=== PATIENT | male | born 1950 | race Caucasian/White ===

== ENCOUNTER 2021-06-29 16:30 | Inpatient (IN) | payer OTHER ==
[~2021-06-29] VITALS: Ht 177.8 cm; Wt 150.0 kg
[2021-06-29 16:25] VITALS: BP 147/68
[2021-06-29] MEDS ORDERED: BETAMETHASONE D50 G2 TOP (16:59)
[2021-06-29] MEDS ORDERED: AMARYL4 MG PO (16:59)
[2021-06-29] MEDS ORDERED: TOPROL XL50 MG PO (17:00)
[2021-06-29] MEDS ORDERED: LIPITOR80 MG PO (17:01)
[2021-06-29] MEDS ORDERED: NORCO5 PO (17:02)
[2021-06-29] MEDS ORDERED: ACCUPRIL40 MG PO (17:02)
[2021-06-29] MEDS ORDERED: ASPIR-TRIN325 MG PO (17:03)
[2021-06-29] MEDS ORDERED: LANTUS SUBQ (17:04)
[2021-06-29] MEDS ORDERED: HUMALOG100 UNIT/1 (17:04)
[2021-06-29 19:08] LABS: INR 1.05; PROTIME 11.4 Seconds (10.5-12.1)
--- NOTE | 2021-06-29 19:09 | NUR ---
PT ADMITED FROM [facility]. ADMISSION HX AND ASSESSMENT COMPLETED. DR FLANNERY NOTIFIED. NEW ORDERS NOTED.
[2021-06-29 19:39] VITALS: BP 147/84
[2021-06-29 20:00] VITALS: BP 152/66
[2021-06-29 23:56] VITALS: BP 152/66
[2021-06-30] VITALS (7 sets, daily range): BP systolic 114–156; BP diastolic 53–68
[2021-06-30 03:35] LABS: ABSOLUTE NEUTROPHILS 11.3 thou/uL (1.4-8.2); BASOPHILS 0.6 % (0.0-2.0); EOSINOPHILS 0.2 % (0.0-3.0); HEMATOCRIT 39.8 % (42.0-52.0); HEMOGLOBIN 13.1 gm/dL (14.0-18.0); LYMPHOCYTES 10.9 % (24.0-44.0); MCH 29.3 pg (26.0-34.0); MCV 88.7 fL (80.0-100.0); PLATELET COUNT 222 thou/uL (150-400); POLYS 81.3 % (36.0-66.0); RBC 4.49 mil/uL (4.50-6.00); RDW 14.3 % (10.5-14.5); WBC 13.9 thou/uL (4.0-11.0)
[2021-06-30 04:03] LABS: ALBUMIN 3.2 g/dL (3.4-5.0); CALCIUM 8.5 mg/dL (8.5-10.1); CREATININE 1.3 mg/dL (0.7-1.3); MAGNESIUM 1.9 mg/dL (1.8-2.4); POTASSIUM 4.2 mmol/L (3.5-5.1); TOTAL BILIRUBIN 0.8 mg/dL (0.2-1.0); TOTAL PROTEIN 7.2 g/dL (6.4-8.2)
--- NOTE | 2021-06-30 05:05 | NUR ---
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
--- NOTE | 2021-07-01 02:51 | NUR ---
PT A&OX4, AFIB ON TELE, HR IN THE 90S, CARDIZEM INFUSING AT 10ML/HR, PT TOLERATED PO MEDS, PT HR DOWN TO 60S AFTER SCHEDULED ATENOLON, CARDIZEM TITRATED OFF, PT HR IS BEE, STABLE BETWEEN 60S-80S, DENIES NAUSEA, GIVEN HYDROCODONEX1 FOR ABDOMINAL PAIN WITH RELIEF, HEPARIN INFUSING PER PROTOCOL, NO DISTRESS NOTED, WILL CONTINUE TO MONITOR PER POC
[2021-07-01 04:20] VITALS: BP 143/45
[2021-07-01 06:26] LABS: HEMATOCRIT 35.1 % (42.0-52.0); MCH 30.3 pg (26.0-34.0); MCV 89.1 fL (80.0-100.0); RBC 3.95 mil/uL (4.50-6.00); RDW 14.4 % (10.5-14.5); WBC 11.7 thou/uL (4.0-11.0)
[2021-07-01 06:45] LABS: CALCIUM 8.1 mg/dL (8.5-10.1); MAGNESIUM 1.8 mg/dL (1.8-2.4)
[2021-07-01 08:00] VITALS: BP 140/68
--- NOTE | 2021-07-01 08:33 | HC ---
[facility] [place] [address] CONSULTATION Name: DEANNE SOMERS Room #: [facility]- ADM IN M.R.#: [id number] Admission: 06/29/21 Attend Phys: Richard Pandya MD Discharge: Date of : 52 Report #: [id number] THIS REPORT FOR: cc: Da Alaniz MD, Kirk D. MD Park, Jin S. MD ~ DATE OF SERVICE: 06/30/2021 CARDIOLOGY CONSULTATION INDICATIONS: Atrial fibrillation. HISTORY OF PRESENT ILLNESS: This is a 70-year-old gentleman with a history of CABG, atrial fibrillation, diabetes mellitus, hypertension, hypercholesterolemia, transferred from [facility] for apparent PE and colitis. Initially presented with nausea and vomiting. Workup revealed PE and colitis. He also reports some chest discomfort, not related to exertion. This may be related to his PE. He also notes increasing shortness of breath. There is no history of fever, PND, or orthopnea. PAST MEDICAL HISTORY: Five-vessel CABG in 2001. No history of VT or stents. History of AFib, previously recommended Xarelto, but it was too expensive and took aspirin twice a day. Diabetes mellitus, hypertension, and hypercholesterolemia. ALLERGIES: None. MEDICATIONS: Include insulin, glimepiride, metoprolol, Lipitor 80 mg, quinapril, aspirin. SOCIAL HISTORY: Denies tobacco use. FAMILY HISTORY: Negative for premature CAD. REVIEW OF SYSTEMS: A full 10-point review of systems performed. Only the pertinent positives and negatives described in the HPI. PHYSICAL EXAMINATION: VITAL SIGNS: Blood pressure is 136/50, heart rate is 120 beats per minute. GENERAL APPEARANCE: This is an overweight male in no acute distress. HEENT: Normocephalic, atraumatic. Oral mucosa moist. NECK: Supple. LUNGS: CTA. CARDIAC: Tachycardic. S1, S2 positive. ABDOMEN: Soft, nontender. EXTREMITIES: No cyanosis, trace edema. [facility] [address] [place] [address] CONSULTATION Name: DEANNE SOMERS Room #: [address] [place] [address] [facility].#: [id number] Admission: 06/29/21 Attend Phys: Richard Pandya MD Discharge: Date of : 52 Report #: [id number] LABORATORY DATA: White count 13.9, hemoglobin 13.1. Creatinine is 1.3. Troponin is 16. ASSESSMENT AND PLAN: 1. Atrial fibrillation with rapid rate. On IV Cardizem. We will switch to beta peggy. We will eventually need anticoagulation therapy. 2. Coronary artery bypass grafting, complains of chest pain. May be related to pulmonary embolism. Will eventually need an ischemic evaluation. Initial troponin level is negative. 3. Diabetes mellitus, continue on insulin as per PCP. 4. Hypertension, continue on TERRELL inhibitor and beta peggy therapy. 5. Hypercholesterolemia, continue statin therapy. <ELECTRONICALLY SIGNED> By: Nick Armas MD 07/01/21 0833 1025 1229 MD wesley Stevens
[2021-07-01 11:14] LABS: CHOLESTEROL 100 mg/dL (<200); HDL CHOLESTEROL 53 mg/dL (>40); LDL CHOLESTEROL 28 mg/dL (<100); TC:HDL 1.9 Ratio (Not establshd); TRIGLYCERIDE 95 mg/dL (<150); VLDL 19 mg/dL (<40)
--- NOTE | 2021-07-01 11:30 | 2DMMODE ---
[facility] [place] [address] [place] [address] 2 D/M-MODE ECHOCARDIOGRAM Name: DEANNE SOMERS Room #: 211-P ADM IN M.R.#: [id number] Admission: 06/29/21 Attend Phys: Richard Pandya MD Discharge: Date of : 52 Report #: [id number] THIS REPORT FOR: cc: Da Alaniz MD, Kirk D. MD Park, Jin S. MD ~ APPROVED REPORT Study performed: 07/01/2021 09:00:49 EXAM: Comprehensive 2D, Doppler, and color-flow Echocardiogram Patient Location: In-Patient Room #: 211 Status: routine BSA: 2.53 HR: 58 bpm BP: 143/4 mmHg Rhythm: Atrial Fibrillation Other Information Study Quality: Adequate Indications Pulmonary Embolism Atrial Fibrillation 2D Dimensions IVSd: 10.30 (7-11mm) LVOT Diam: 20.65 (18-24mm) LVDd: 53.06 mm PWd: 9.04 (7-11mm) Ascending Ao: 33.27 (22-36mm) LVDs: 40.80 (25-40mm) Left Atrium: 44.30 (27-40mm) Aortic Root: 30.58 mm Volumes Left Atrial Volume (Systole) Single Plane 4CH: 43.94 mL Single Plane 2CH: 33.77 mL Biplane LA Volume: 48.00 mL LA ESV Index: 19.00 mL/m2 Aortic Valve AoV Peak Rashaun.: 1.11 m/s AO Peak Gr.: 4.94 mmHg LVOT Max P.47 mmHg LVOT Max V: 0.61 m/s TREVER Vmax: 1.83 cm2 [facility] [email or web address] [address] 2 D/M-MODE ECHOCARDIOGRAM Name: DEANNE SOMERS Room #: 211-P ADM IN [facility].#: [id number] Admission: 06/29/21 Attend Phys: Sarah Darling Discharge: Date of : 52 Report #: [id number] Pulmonary Valve PV Peak Rashaun.: 1.08 m/s PV Peak Gr.: 4.63 mmHg Tricuspid Valve TR Peak Rashaun.: 3.00 m/s RAP Estimate: 7.00 mmHg TR Peak Gr.: 36.00 mmHg RVSP: 43.00 mmHg Left Ventricle The left ventricle is normal size. There is normal LV segmental wall motion. There is normal left ventricular wall thickness. Left ventricular systolic function is borderline. LVEF is 50%. This study is not technically sufficient to allow evaluation of the LV diastolic function due to atrial fibrillation. Right Ventricle The right ventricle is normal size. The right ventricular systolic function is normal. Atria The left atrium size is normal. The right atrium size is normal. Aortic Valve The aortic valve is normal in structure. No aortic regurgitation is present. There is no aortic valvular stenosis. Mitral Valve The mitral valve is normal in structure. Mild to moderate mitral regurgitation. No evidence of mitral valve stenosis. Tricuspid Valve The tricuspid valve is normal in structure. Mild to moderate tricuspid regurgitation. PAP 42 mmHg Pulmonic Valve The pulmonary valve is normal in structure. Mild pulmonic regurgitation. Great Vessels The aortic root is normal in size. IVC is dilated and collapses <50% with inspiration. Pericardium There is no pericardial effusion. There is no pleural effusion. [facility] [place] [place] [address] 2 D/M-MODE ECHOCARDIOGRAM Name: NATALIAAUSTINHERMITAGE Room #: [address] [place] [address] IN M.R.#: [id number] Admission: 06/29/21 Attend Phys: Sarah Darling Discharge: Date of : 52 Report #: [id number] <Conclusion> The left ventricle is normal size. There is normal left ventricular wall thickness. Left ventricular systolic function is borderline. LVEF is 50%. The right ventricle is normal size. The left atrium size is normal. The aortic valve is normal in structure. Mild to moderate mitral regurgitation. Mild to moderate tricuspid regurgitation. <ELECTRONICALLY SIGNED> By: Nick Armas MD 07/01/21 1129 1129 1129 Nick Armas MD /INF
[2021-07-01 16:00] VITALS: BP 134/74
[2021-07-01 19:04] VITALS: BP 140/85
--- NOTE | 2021-07-02 03:31 | NUR ---
Assumed pt care at 1900. Pt is alert and oriented. No sign of distress noted in pt. Patient is verbalizing nausea and pain. Pain medication and antiemetic administered. Assessment completed and documented. Scheduled meds administered to patient. No acute events through the night. Continue to monitor, no further needs at this time
[2021-07-02 03:40] VITALS: BP 137/64
[2021-07-02 05:33] LABS: HEMATOCRIT 35.4 % (42.0-52.0); HEMOGLOBIN 11.7 gm/dL (14.0-18.0); MCH 29.4 pg (26.0-34.0); MCHC 33.1 g/dL (28.0-37.0); MCV 88.7 fL (80.0-100.0); RBC 3.99 mil/uL (4.50-6.00); WBC 9.5 thou/uL (4.0-11.0)
[2021-07-02 07:25] VITALS: BP 153/80
[2021-07-02 08:25] VITALS: BP 154/77
[2021-07-02 12:38] VITALS: BP 126/55
[2021-07-02 16:00] VITALS: BP 111/85
--- NOTE | 2021-07-02 18:05 | NUR ---
PT FOUND ON THE FLOOR THIS AM IMMIEDIATELY AFTER SHIFT CHANGE, PT REPORTED THAT HIS LEG GAVE UP ON HIM, DENIED HITTING HEAD, VS STABLE, SPOUSE AND PHYSICIAN NOTIFIED, NO FURTHER ORDERS RECEIVED. FALL PRECAUTIONS ENFORCED. PT REMINDED NOT TO SELF TRANSFER WITHOUT CALLING FOR HELP. UP IN THE CHAIR AT THIS TIME NO FURTHER CONCERNS PROGRESSING WELL TOWARDS DISCHARGE GOAL.
[2021-07-02 20:00] VITALS: BP 131/81
[2021-07-03 04:34] VITALS: BP 119/72
[2021-07-03 05:15] LABS: APTT 57.8 Seconds (24.5-32.8); INR 1.11
--- NOTE | 2021-07-03 07:08 | NUR ---
ASSUMED PATIENT CARE AT 1845. LS- CTA, BOWEL SOUNDS ACTIVE, PPP ALL EXTREMITIES, VSS : BP-119/72, T- 98.1, P- 79, R- 12, SPO2- 94% RA. CHANGED DRESSING TO RAC IV SITE R/T OOZING DUE TO HEPARIN INFUSING. FLUIDS & ABT INFUSING IN RW. NORCO GIVEN FOR C/O ABDOMINAL PAIN 04/27. EFFECTIVE 01/26. DRESSING CDI TO RFA, R/T FALL. LIQUID STOOL W/ CLEAR URINE VOIDED X 2. NO VISIBLE BLOOD OBSERVED. WAS NOT ABLE TO REST MUCH R/T IV MEDS AND AM LABS. PTT- 57.8, NO CHANGE IN HEPARIN INFUSION. REPORT GIVEN TO ONCOMING RN.
[2021-07-03 09:00] VITALS: BP 133/63
[2021-07-03] MEDS ORDERED: ATENOLOL 50MG T50 MG PO (10:54)
[2021-07-03] MEDS ORDERED: XARELTO15 MG PO (10:54)
[2021-07-03] MEDS ORDERED: BAYER CHEWABLE81 MG PO (10:54)
[2021-07-03 11:00] VITALS: BP 115/66
--- NOTE | 2021-07-03 14:24 | NUR ---
Met with patient who admits with AFIB. Patient resides at home with . all needs needs on one level. 3 steps to enter home. patient likely dc tomorrow. Discussed HH care and outpatient therapy. Patient prefers outpatient therapy. updated phys. Patient familiar with outpatient and also recommended by therapy. Casemgt following.
[2021-07-03 15:10] VITALS: BP 132/57
--- NOTE | 2021-07-03 18:14 | NUR ---
OVERALL PT HAD A GOOD SHIFT. ASSISTED PT UP FROM BED TO TOILET THIS AM. LOOSE BOWEL MOVEMENT. ASSISTED PT TO CHAIR FROM TOILET. PT USED THE TOILET 2 MORE TIMES WITH ASSISTANCE THROUGHOUT SHIFT. PT STATED HIS PAIN WAS UNDERCONTROL AND DID NOT REQUEST ANY PAIN MEDICATION. PT HEPARIN WAS DC'D AND PALCED ON XERALTO.
[2021-07-03 19:20] VITALS: BP 148/89
[2021-07-04 03:06] LABS: INR 1.56; PROTIME 16.6 Seconds (10.5-12.1)
[2021-07-04 03:59] VITALS: BP 148/93
--- NOTE | 2021-07-04 05:16 | NUR ---
PT SITTING IN CHAIR AND THEN ASSISTED INTO BED, POOR INTAKE ON LIQUID DIET. VSS, PRN PAIN MED GIVEN FOR C/O PAIN, REPOSITIONED NEEDED, NS INFUSING IN R FA, WILL CON'T TO MONITOR PER PPOC
[2021-07-04 07:32] VITALS: BP 146/85
[2021-07-04] MEDS ORDERED: AMOX TR-K CLV1 EAC4 PO (09:34)
[2021-07-04 10:33] VITALS: BP 145/85
[2021-07-04 12:49] VITALS: BP 151/75
[2021-07-04 12:59] VITALS: BP 151/75
--- NOTE | 2021-07-04 15:47 | NUR ---
PATIENT ALERT AND ORIENTATED AT THIS TIME. WENT OVER DISCHARGE INSTRUCTIONS WITH PATIENT AND HIS WAS PRESENT. ASKED APPROPRIATE QUESTIONS REGARDING NEW MEDICATIONS; EDUCATION PROVIDED ON NEW MEDICATIONS. EDUCATION PROVIDED ON FOLLOW UP APPOINTMENT. PATIENT DENIES CHEST PAIN, NAUSEA, VOMITING AND SHORTNESS OF AIR AT THIS TIME. PATIENT DISCHARGED TO HOME VIA PERSONAL VEHICLE ACCOMPANIED BY NURSING STAFF WITH SPOUSE PRESENT. PATIENT DENIES ANY ADDITIONAL QUESTIONS.
== END 2021-07-04 15:10 | disposition home or self-care (01) | DRG 871 ==
LOC: 2N 16:30
PROVIDERS: Internal Medicine; ADMIT Hospitalist; ATTEND Hospitalist
DX: A41.9 Sepsis, unspecified organism (principal); I26.99 Other pulmonary embolism without acute cor pulmonale; J96.01 Acute respiratory failure with hypoxia; I48.20 Chronic atrial fibrillation, unspecified; B02.29 Other postherpetic nervous system involvement; C64.2 Malignant neoplasm of left kidney, except renal pelvis; K52.9 Noninfective gastroenteritis and colitis, unspecified; E78.00 Pure hypercholesterolemia, unspecified; I10 Essential (primary) hypertension; E78.5 Hyperlipidemia, unspecified; I25.10 Atherosclerotic heart disease of native coronary artery without angina pectoris; E11.43 Type 2 diabetes mellitus with diabetic autonomic (poly)neuropathy; I25.2 Old myocardial infarction; Z95.1 Presence of aortocoronary bypass graft; Z79.82 Long term (current) use of aspirin; Z79.899 Other long term (current) drug therapy
CPT/HCPCS: 10081

== ENCOUNTER 2021-07-29 11:07 | Inpatient (IN) | payer OTHER ==
[~2021-07-29] VITALS: Ht 177.8 cm; Wt 117.9 kg
[~2021-07-29 11:07] MED LIST: ACCUPRIL40 MG PO; AMARYL4 MG PO; AMOX TR-K CLV1 EAC4 PO; ASPIR-TRIN325 MG PO; ATENOLOL 50MG T50 MG PO; BAYER CHEWABLE81 MG PO; BETAMETHASONE D50 G2 TOP; HUMALOG100 UNIT/1; LANTUS SUBQ; LIPITOR80 MG PO; NORCO5 PO; TOPROL XL50 MG PO; XARELTO15 MG PO
[2021-07-29 11:13] VITALS: BP 94/61
--- NOTE | 2021-07-29 12:11 | NUR ---
PT UNABLE TO URINATE AT THIS TIME. WILL CONTINUE TO MONITOR
[2021-07-29 12:38] LABS: ABSOLUTE NEUTROPHILS 11.1 thou/uL (1.4-8.2); BASOPHILS 0.5 % (0.0-2.0); EOSINOPHILS 0.8 % (0.0-3.0); HEMATOCRIT 39.4 % (42.0-52.0); HEMOGLOBIN 13.2 gm/dL (14.0-18.0); LYMPHOCYTES 12.9 % (24.0-44.0); MCH 29.5 pg (26.0-34.0); MCHC 33.6 g/dL (28.0-37.0); MCV 87.8 fL (80.0-100.0); MONOCYTES 7.8 % (1.0-8.0); PLATELET COUNT 281 thou/uL (150-400); RBC 4.49 mil/uL (4.50-6.00); RDW 14.8 % (10.5-14.5); WBC 14.3 thou/uL (4.0-11.0)
[2021-07-29 12:45] LABS: CALCIUM 8.8 mg/dL (8.5-10.1); CREATININE 1.4 mg/dL (0.7-1.3); POTASSIUM 3.6 mmol/L (3.5-5.1)
[2021-07-29 12:52] LABS: ALBUMIN 3.4 g/dL (3.4-5.0); TOTAL BILIRUBIN 0.8 mg/dL (0.2-1.0); TOTAL PROTEIN 7.2 g/dL (6.4-8.2)
--- NOTE | 2021-07-29 12:55 | NUR ---
VERBAL ORDERS FROM LAWANDA KAUR TO INFUSE 250 ML OF NS.
[2021-07-29 15:20] LABS: URINE BILIRUBIN NEGATIVE (Negative); URINE BLOOD TRACE (Negative); URINE CLARITY CLEAR; URINE COLOR YELLOW; URINE GLUCOSE-RANDOM* NEGATIVE (Negative); URINE KETONES NEGATIVE (Negative); URINE LEUKOCYTES-REFLEX NEGATIVE (Negative); URINE NITRITE-REFLEX NEGATIVE (Negative); URINE PROTEIN (DIPSTICK) NEGATIVE (Negative); URINE UROBILINOGEN 0.2 E.U./dl (0.2-1.0)
[2021-07-30 00:52] LABS: HEMATOCRIT 38.6 % (42.0-52.0); HEMOGLOBIN 12.8 gm/dL (14.0-18.0); MCH 29.2 pg (26.0-34.0); MCHC 33.1 g/dL (28.0-37.0); MCV 88.2 fL (80.0-100.0); RBC 4.37 mil/uL (4.50-6.00); RDW 15.1 % (10.5-14.5); WBC 12.3 thou/uL (4.0-11.0)
[2021-07-30 00:56] LABS: CALCIUM 8.6 mg/dL (8.5-10.1); CREATININE 1.2 mg/dL (0.7-1.3); POTASSIUM 4.1 mmol/L (3.5-5.1)
[2021-07-30 18:29] VITALS: BP 133/90
[2021-07-30 18:50] VITALS: BP 113/74
[2021-07-30 20:17] VITALS: BP 153/83
--- NOTE | 2021-07-31 02:04 | NUR ---
PT ARRIVED FORM ER 1999. A&OX4 ADMISSION DONE AND PT ORIENTED TO THE UNIT. GOLYTELY BOWEL PREP STARTED DOWN IN TH ER. PT DRANK 300 CC ON THE FLLOR. NPO AT MIDINGHT. UP AD CLAUDIO TO THE BATHROOM. IV INTACT AND ABX INFUSING WITH FLUIDS. ON RA. BSG CHECKED AND INSLUIN GIVEN. WILL CONT WITH POC TILL EOS.
[2021-07-31 04:27] VITALS: BP 129/78
[2021-07-31 09:06] VITALS: BP 138/83
[2021-07-31 10:02] LABS: ABSOLUTE NEUTROPHILS 4.9 thou/uL (1.4-8.2); EOSINOPHILS 2.2 % (0.0-3.0); HEMOGLOBIN 12.6 gm/dL (14.0-18.0); LYMPHOCYTES 16.3 % (24.0-44.0); MCH 29.4 pg (26.0-34.0); MCHC 33.2 g/dL (28.0-37.0); MCV 88.6 fL (80.0-100.0); PLATELET COUNT 200 thou/uL (150-400); POLYS 69.5 % (36.0-66.0); RBC 4.29 mil/uL (4.50-6.00); RDW 14.9 % (10.5-14.5); WBC 7.1 thou/uL (4.0-11.0)
--- NOTE | 2021-07-31 10:18 | NUR ---
ORDERS FOR EVAL AND TREAT. Pt IS UP AD CLAUDIO IN ROOM. SPOKE WITH Pt WHO STATES MAIN COMPLAINT IS ABDOMINAL PAIN BUT NOT HAVING ANY ISSUES WITH MOBILITY, BALANCE OR STRENGTH. STATES HE DID FINE WITH O.T. EVAL AND DOES NOT THINK HE NEEDS A FORMAL EVAL FROM P.T. Pt DECLINING P.T. EVAL BUT APPEARS SAFE FOR HOME WHEN MEDICALLY CLEAR
[2021-07-31 10:23] LABS: CALCIUM 8.7 mg/dL (8.5-10.1); CREATININE 1.1 mg/dL (0.7-1.3); POTASSIUM 3.8 mmol/L (3.5-5.1)
--- NOTE | 2021-07-31 12:12 | NUR ---
ASSUMED PT CARE THIS AM. PT IS ALERT & ORIENTED X4. PT HAS IV SITE ON RFA RUNNING NS @100ML/HR. PT IS UP AD CLAUDIO AND WAS WORKING WITH PHYSICAL THERAPY THIS AM,. PT IS ACCUCHECK ACHS. PT IS ON ROOM AIR. PT RATED PAIN 5/10 ON ABDOMEN. PT HAS BEEN NPO SINCE MIDNIGHT. PT WILL HAVE PROCEDURE THIS AFTERNOON AND INFORMED PT. PT REFUSED BP MEDICATION THIS AM. PT ON THE CHAIR WATCHING TV, CALL LIGHT WITHIN REACH. FOLLOW POC.
--- NOTE | 2021-07-31 14:58 | NUR ---
Chart reviewed and case discussed with the care team. CM role introduced to the pt and at bedside. Pt is indep and active prior to admission. He lives with his and they do not anticipate any dc needs. The pt is having a colonoscopy today due to +occult stool. Will follow along should dc needs arise. His pcp is Dr. Da Alaniz.
[2021-07-31 19:52] VITALS: BP 143/92
--- NOTE | 2021-08-01 00:57 | NUR ---
PT ALERT AND ORIENTED. GETS UP STEADILY TO THE BATHROOM. DENIES ANY PAIN/NAUSEA/VOMITING. AFEBRILE. CONTINUES ON IVF AND IV ABTS.NPO AFTER MIDNIGHT FOR EGD IN THE AM-PT AWARE OF PLAN. NO FURTHER CONCERNS AT THIS TIME.
[2021-08-01 03:55] VITALS: BP 133/80
[2021-08-01 05:41] LABS: HEMATOCRIT 35.6 % (42.0-52.0); HEMOGLOBIN 12.3 gm/dL (14.0-18.0); MCH 30.1 pg (26.0-34.0); MCHC 34.4 g/dL (28.0-37.0); MCV 87.6 fL (80.0-100.0); RBC 4.07 mil/uL (4.50-6.00); RDW 14.8 % (10.5-14.5); WBC 6.7 thou/uL (4.0-11.0)
[2021-08-01 06:38] LABS: CALCIUM 8.3 mg/dL (8.5-10.1); CREATININE 0.9 mg/dL (0.7-1.3); POTASSIUM 3.7 mmol/L (3.5-5.1)
[2021-08-01 07:15] VITALS: BP 148/102
--- NOTE | 2021-08-01 10:16 | NUR ---
ASSUMED PT CARE THIS AM. PT IS ALERT & ORIENTED X4. PT HAS IV SITE ON RFA RUNNING NS @100ML/HR. PT IS UP AD CLAUDIO. PT IS ACCUCHECK ACHS. PT IS ON ROOM AIR. PT WILL HAVE EGD TODAY. PT RATED PAIN 4/10 ON THE ABDOMEN. PT HAS BEEN NPO SINCE MIDNIGHT. PT IS CURRENTLY SITTING ON THE CHAIR WATCHING TV. AWAITING FOR EGD. FOLLOW POC.
[2021-08-01 14:01] VITALS: BP 146/91
[2021-08-01 20:10] VITALS: BP 122/76
--- NOTE | 2021-08-02 01:29 | NUR ---
PT DENIED PAIN SO FAR.PT CONT ON CIPRO AND FLAGYL ORDERED.PT UP ADLIB IN HIS ROOM.PT ABLE TO MAKE HIS NEEDS KNOWN.PT PROGRESSING SLOWLY TOWARDS DC GOALS.CALL LIGHT WITHIN REACH.
[2021-08-02 05:23] LABS: HEMATOCRIT 35.2 % (42.0-52.0); HEMOGLOBIN 12.2 gm/dL (14.0-18.0); MCH 30.4 pg (26.0-34.0); MCHC 34.6 g/dL (28.0-37.0); WBC 9.1 thou/uL (4.0-11.0)
[2021-08-02 05:32] LABS: CALCIUM 8.1 mg/dL (8.5-10.1); CREATININE 0.8 mg/dL (0.7-1.3); POTASSIUM 3.3 mmol/L (3.5-5.1)
[2021-08-02 07:36] VITALS: BP 140/86
[2021-08-02] MEDS ORDERED: CIPRO500 M1 PO (14:37)
[2021-08-02] MEDS ORDERED: XARELTO20 MG PO (14:40)
[2021-08-02] MEDS ORDERED: PROTONIX40 M2 PO (14:42)
[2021-08-02] MEDS ORDERED: CARAFATE 11 GM/10 M1 PO (14:42)
--- NOTE | 2021-08-02 15:15 | NUR ---
CARE TEAM INDICATED THAT PT IS MEDICALLY STABLE TO DC HOME THIS DAY. PT TO DC HOME TO SELF CARE. NO OTHER CM INTERVENTION INDICATED. CASE CLOSED.
[2021-08-02 15:31] VITALS: BP 140/86
--- NOTE | 2021-08-02 16:22 | NUR ---
PT ASSESSED AT START OF SHIFT. UP IN THE CHAIR ALL DAY. EATING AND DRINKING W/O NAUSEA OR PAIN. GI NURSE IN THIS AM AND PT TO F/U W/ DR. ENNIS IF DISCHARGED TODAY. DC'D AT 1545 W/ ALL BELONGINGS.
--- NOTE | 2021-08-02 16:25 | NUR ---
PT ASSESSED AT START OF SHIFT. PROGRESSING TOWARD GOALS. EATING AND DRINKING W/O NAUSEA OR PAIN. DICHARGED AT 1545 W/ ALL BELONGINGS. WILL F/U W/ DR. ENNIS IN 2 WEEKS.
--- NOTE | 2021-08-02 17:34 | P ---
[facility] [place] [address] PROCEDURE REPORT Name: DEANNE SOMERS Room #: 443-[facility] IN M.R.#: [id number] Admission: 07/29/21 Attend Phys: Da Al MD Discharge: 08/02/21 Date of : 51 Report #: [id number] THIS REPORT FOR: cc: Da Alaniz MD, Kirk D. MD McElhinney, Christian C. MD ~ cc: Da Al MD, Da Alaniz MD DATE OF SERVICE: 08/01/2021 PROCEDURE PERFORMED: Upper endoscopy with biopsies. HISTORY OF PRESENT ILLNESS: The patient is a 70-year-old male with history of abdominal pain, weight loss of approximately 50 pounds, recurrent nausea and vomiting. CT scan of the abdomen and pelvis on 07/29/2021 shows numerous diverticula throughout the descending and sigmoid colon. Smooth muscle hypertrophy is present in the sigmoid colon, mild inflammation in the mid portion of the sigmoid. Inflammation cannot be excluded. The patient has been on IV antibiotics. He continues to have abdominal pain. He does have a new left renal mass, which has not been resected, but is known from recent CT scan as well. I performed a colonoscopy on the patient yesterday, diverticulosis without evidence of diverticulitis was noted. Because of his nausea, vomiting, weight loss, no previous history of upper endoscopy, plan is for upper endoscopy today. DESCRIPTION OF PROCEDURE: The risks and benefits of the procedure were explained to the patient, those risks including but not limited to bleeding, perforation and the risk of sedation. He understood these risks and gave informed consent. Sedation was given using propofol per Anesthesia. Next, using a standard Olympus upper endoscope, the scope was placed in the patient's mouth and advanced under direct vision through the esophagus, stomach and into the second portion of the duodenum. The larynx was normal in appearance. The upper and mid esophagus was normal. In the distal esophagus, grade C erosive esophagitis was noted with a possible short segment Owen's. Biopsies were obtained. No evidence of bleeding in the stomach. The gastric fundus and body were normal. There was gastritis with several erosions noted in the gastric antrum. Biopsies were obtained to rule out H. pylori. The pylorus was normal and patent. In the duodenal bulb, first and second portion, multiple small clean white based ulcers were noted. There was no evidence of bleeding. Biopsies were obtained. The scope was then withdrawn and the procedure terminated. The patient tolerated the procedure well. IMPRESSION: 1. Grade C erosive esophagitis. 2. 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 3. Gastritis with erosions. [address] [address] PROCEDURE REPORT Name: LIZBETDEANNE Room #: 443-P [facility] IN M.R.#: [id number] Admission: 07/29/21 Attend Phys: Da Al MD Discharge: 08/02/21 Date of : 51 Report #: [id number] 4. Multiple small clean white based ulcers throughout the duodenum. RECOMMENDATIONS: 1. Await biopsy results. 2. Recommend starting b.i.d. PPI therapy and Carafate for the next 2 weeks and then long-term PPI therapy afterwards. Thank you for allowing me to participate in his care. <ELECTRONICALLY SIGNED> By: Steve Ohara MD 08/02/21 1734 1232 1341 Steve Ohara MD /nt
--- NOTE | 2021-08-02 17:34 | P ---
[facility] [place] [address] PROCEDURE REPORT Name: DEANNE SOMERS Room #: 443-P [facility] IN M.R.#: [id number] Admission: 07/29/21 Attend Phys: Da Al MD Discharge: 08/02/21 Date of : 52 Report #: [id number] THIS REPORT FOR: cc: Da Alaniz MD, Kirk D. MD McElhinney, Christian C. MD ~ cc: Da Al MD DATE OF SERVICE: 07/31/2021 PROCEDURE PERFORMED: Colonoscopy with polypectomies. HISTORY OF PRESENT ILLNESS: The patient is a 70-year-old male who was admitted through the Emergency Room yesterday with abdominal pain. He was reportedly diagnosed with colitis and a pulmonary embolus last month, finished a course of antibiotics and did have improvement during that time, now has recurrence of his abdominal pain. He has been recently diagnosed with a mass in his left kidney, likely renal cell carcinoma. This has not been treated as of yet. The patient reports right lower quadrant as well as some left lower quadrant abdominal pain. He had an episode of nausea and vomiting. Denies any blood in his stools. He did have some loose stools and diarrhea while on antibiotics. CT scan of the abdomen and pelvis here showing numerous diverticula throughout the descending and sigmoid colon. Smooth muscle hypertrophy was present in the sigmoid colon, mild inflammation in the mid portion of the sigmoid colon. The patient has been started on Cipro and Flagyl. Last colonoscopy greater than 20 years ago. White count was elevated at 14.3 on admission, currently 7.1. Hemoglobin of 12.6. DESCRIPTION OF PROCEDURE: The risks and benefits of the procedure were explained to the patient, those risks including but not limited to bleeding, perforation and the risk of sedation. He understood these risks and gave me informed consent. Sedation was given using propofol per anesthesia. Next, a digital rectal exam was initially performed, which was normal. Next, using a standard Olympus colonoscope, the scope was placed in the patient's anus and advanced under direct vision into cecum. The overall prep was good. The cecum and ileocecal valve were normal in appearance. In the ascending colon, two 3-4 mm sessile polyps were noted, both removed with cold forceps. Random colon biopsies were also obtained today to rule out the possibility of microscopic colitis. Transverse colon, a 7 mm partially pedunculated polyp was noted. This was removed by snare cautery. In the descending colon, several diverticula were noted. No evidence of obvious inflammation. Three total polyps were also noted in the descending colon. The smallest from 4-5 mm and removed by cold forceps. The larger was 8 and removed by snare cautery. Multiple diverticula were noted in the sigmoid colon. No evidence of inflammation. The rectal mucosa was normal. On retroflexion, small nonbleeding internal hemorrhoids were noted. The scope was then withdrawn and the procedure terminated. The patient tolerated the procedure well. [address] [address] PROCEDURE REPORT Name: LIZBETDEANNE Room #: 443-P [facility] IN Julio#: [id number] Admission: 07/29/21 Attend Phys: Da Al MD Discharge: 08/02/21 Date of : 52 Report #: [id number] IMPRESSION: 1. Left-sided diverticulosis. No evidence of obvious diverticulitis. 2. Multiple small polyps as described above. 3. Internal hemorrhoids. 4. Otherwise, normal colonoscopy. RECOMMENDATIONS: 1. Await biopsy results. 2. No obvious diverticulitis was noted on exam today. Would continue antibiotics as the patient did have pain, benefit from antibiotics in the past and had elevated white count on admission. Thank you for allowing me to participate in his care. <ELECTRONICALLY SIGNED> By: Steve Ohara MD 08/02/21 1734 1352 0113 Steve Ohara MD /nt
--- NOTE | 2021-08-05 19:06 | PATH ---
[facility] [place] [address] [place] [address] PATHOLOGY RPT PROCEDURE Name: JOAO SOMERS Room #: 443-[facility] IN M.R.#: [id number] Admission: 07/29/21 Date of : 52 Discharge: 08/02/21 Report #: [id number] Path Case #: [id number] [facility] Accession Number: [id number] . 01 Material submitted: . PART A: duodenum - DUODENUM BIOPSY- R/O CELIAC SPRUE PART B: gastrointestinal site - GASTRITIS BIOPSY- R/O H. PYLORI PART C: esophagus - DISTAL ESOPHAGUS BIOPSY- R/O MONTE'S. Modifiers: distal . 01 Clinical history: . ESOPHAGOGASTRODUODENOSCOPY ABD PAIN, WEIGHT LOSS, NAUSEA AND VOMITING DUODENAL ULCERS, GASTRITIS, ESOPHAGITIS . 02 Diagnosis: A. Small bowel mucosa, duodenum R/O sprue, endoscopic biopsy: - Mild chronic inflammation associated with fundic-type metaplasia, compatible with peptic duodenitis. - Negative for villous blunting and increase in intraepithelial lymphocytes. . B. Gastric mucosa, gastritis R/O H. pylori, endoscopic biopsy: - Mild chronic gastritis. - Negative for intestinal metaplasia or atrophy. - Negative for Helicobacter pylori (properly controlled immunohistochemical stain performed). . C. Gastric cardia-type mucosa, distal esophagus R/O Monte's, endoscopic biopsy: - Mild chronic inflammation. - Negative for intestinal metaplasia or dysplasia. (IUV:maren; 08/05/2021) QMS 08/05/2021 1407 Local . 02 Electronically signed: . Nazanin Navarrete MD, Pathologist NPI- [id number] . 01 Gross description: . A. The specimen is received in formalin, labeled "Joao Somers, duodenum BX-R/O celiac sprue" and consists of multiple stiles irregular tissues aggregating 1.1 x 0.3 x 0.1 cm which are filtered and submitted in toto in A1. . B. The specimen is received in formalin, labeled "Joao Somers, gastritis BX-R/O H. pylori" and consists of 3 stiles irregular tissues [address] [address] PATHOLOGY RPT PROCEDURE Name: JOAO SOMERS Room #: 443-P [facility] IN M.R.#: [id number] Admission: 07/29/21 Date of : 52 Discharge: 08/02/21 Report #: [id number] Path Case #: [id number] aggregating 0.7 x 0.5 x 0.2 cm which are submitted in toto in B1. . C. The specimen is received in formalin, labeled "Treutlen, Foster, distal esophagus BX-R/O Monte's" and consists of 2 stiles irregular tissues aggregating 0.4 x 0.3 x 0.2 cm which are submitted in toto in C1.([place]; 08/02/2021) DKA/DKA 08/02/2021 1715 Local . 02 Pathologist provided ICD-10: K29.80, K29.50, K20.90 . 02 CPT . 849947, 741423, 099203, F41994 Specimen Comment: A courtesy copy of this report has been sent to [phone], [phone] Specimen Comment: [phone], Specimen Comment: Report sent to , DR CARDONA / DR CHIU Performed at: 01 [facility] [address] [place] [address] [address], [place] [id number] MD Al Sahu MD Phone: [phone] Performed at: [address] [id number] MD Nazanin Navarrete MD Phone: [phone]
== END 2021-08-02 16:48 | disposition home or self-care (01) | DRG 380 ==
LOC: ER 11:07 → 4S 16:27 → EROBS 16:27 → 4S 07-30 20:00
PROVIDERS: Emergency Medicine; Nurse Practitioner; ADMIT Hospitalist; ATTEND Hospitalist
PROC: 0DBM8ZZ Excision of Descending Colon, Via Natural or Artificial Opening Endoscopic (ICD-10-PCS; principal; 2021-07-31)
PROC: 0DBL8ZZ Excision of Transverse Colon, Via Natural or Artificial Opening Endoscopic (ICD-10-PCS; principal; 2021-07-31)
PROC: 0DBK8ZZ Excision of Ascending Colon, Via Natural or Artificial Opening Endoscopic (ICD-10-PCS; principal; 2021-07-31)
PROC: 0DBE8ZX Excision of Large Intestine, Via Natural or Artificial Opening Endoscopic, Diagnostic (ICD-10-PCS; principal; 2021-07-31)
PROC: 0DB38ZX Excision of Lower Esophagus, Via Natural or Artificial Opening Endoscopic, Diagnostic (ICD-10-PCS; 2021-08-01)
PROC: 0DB78ZX Excision of Stomach, Pylorus, Via Natural or Artificial Opening Endoscopic, Diagnostic (ICD-10-PCS; 2021-08-01)
PROC: 0DB98ZX Excision of Duodenum, Via Natural or Artificial Opening Endoscopic, Diagnostic (ICD-10-PCS; 2021-08-01)
DX: K22.10 Ulcer of esophagus without bleeding (principal); R65.11 Systemic inflammatory response syndrome (SIRS) of non-infectious origin with acute organ dysfunction; N17.0 Acute kidney failure with tubular necrosis; A09 Infectious gastroenteritis and colitis, unspecified; K25.9 Gastric ulcer, unspecified as acute or chronic, without hemorrhage or perforation; K29.70 Gastritis, unspecified, without bleeding; K26.9 Duodenal ulcer, unspecified as acute or chronic, without hemorrhage or perforation; K57.30 Diverticulosis of large intestine without perforation or abscess without bleeding; Z20.822 Contact with and (suspected) exposure to COVID-19; E78.00 Pure hypercholesterolemia, unspecified; I48.91 Unspecified atrial fibrillation; D12.2 Benign neoplasm of ascending colon; E78.5 Hyperlipidemia, unspecified; I10 Essential (primary) hypertension; E11.65 Type 2 diabetes mellitus with hyperglycemia; K64.8 Other hemorrhoids; I25.10 Atherosclerotic heart disease of native coronary artery without angina pectoris; R63.4 Abnormal weight loss; Z95.1 Presence of aortocoronary bypass graft; Z79.82 Long term (current) use of aspirin; Z79.899 Other long term (current) drug therapy; I25.2 Old myocardial infarction; Z86.711 Personal history of pulmonary embolism; Z68.37 Body mass index [BMI] 37.0-37.9, adult
CPT/HCPCS: 10102; 62110; 62900; 70005

== ENCOUNTER → 2021-08-19 | Outpatient (CLI) | payer OTHER ==
[~2021-08-19] MED LIST changes: +CARAFATE 11 GM/10 M1 PO; +CIPRO500 M1 PO; +PROTONIX40 M2 PO; +XARELTO20 MG PO
== END ==
LOC: SJCVCIMAG 10:19
PROVIDERS: ATTEND Internal Medicine Cardiovascular Disease
DX: I25.9 Chronic ischemic heart disease, unspecified (principal); I25.10 Atherosclerotic heart disease of native coronary artery without angina pectoris; I48.91 Unspecified atrial fibrillation; I10 Essential (primary) hypertension; E78.00 Pure hypercholesterolemia, unspecified; E11.9 Type 2 diabetes mellitus without complications; E78.5 Hyperlipidemia, unspecified; Z95.1 Presence of aortocoronary bypass graft; Z79.4 Long term (current) use of insulin; Z79.899 Other long term (current) drug therapy